=== PATIENT | male | born 1945 | race Caucasian/White ===

== ENCOUNTER 2018-05-19 17:02 | Emergency (ER) | payer MEDICARE ==
[2018-05-19 17:38] VITALS: O2SAT 97
[2018-05-19] MEDS ORDERED: SODIUM CHLORIDE 0.9% 500ML 500 ML IVS ONE ×2 (18:01→20:17)
[2018-05-19] MEDS ORDERED: ONDANSETRON INJ 4 MG/2 ML VIAL IV ONE (18:01)
--- NOTE | 2018-05-19 19:05 | ED.PDOC ---
History of Present Illness - General Chief Complaint: Abdominal Pain Stated Complaint: Abdominal discomfort, L upper Time Seen by Provider: 05/19/18 18:00 Information Source: patient, RN notes reviewed, Vital Signs reviewed, family Exam Limitations: no limitations - History of Present Illness Abdominal Pain Onset Location: epigastric Pain Radiation: no radiation Quality: cramping, sharpness Timing/Duration: 1 week Improving Factors: nothing Worsening Factors: eating Associated Symptoms: fatigue, nausea/vomiting, weakness Review of Systems - Review of Systems Constitutional: States: see HPI EENTM: States: no symptoms reported Respiratory: States: no symptoms reported Cardiology: States: no symptoms reported. Denies: chest pain, edema, palpitations, syncope Gastrointestinal/Abdominal: States: abdominal pain, nausea, vomiting Genitourinary: States: no symptoms reported Musculoskeletal: States: no symptoms reported Skin: States: no symptoms reported Neurological: States: no symptoms reported Endocrine: States: no symptoms reported Hematologic/Lymphatic: States: no symptoms reported Family Medical History - Family History Father Living Status: Hx Cardiac Disease: Yes Hx Family Cancer: Yes Physical Exam - Physical Exam General Appearance: Alert, Anxious Eyes, Ears, Nose, Throat Exam: PERRL/EOMI, normal ENT inspection, TMs normal Neck: non-tender, full range of motion, supple, normal inspection Respiratory: chest non-tender, lungs clear, normal breath sounds, no respiratory distress, no accessory muscle use Cardiovascular/Chest: normal peripheral pulses, regular rate, rhythm, no edema, no gallop, no JVD Peripheral Pulses: 2+ Gastrointestinal/Abdominal: non tender, tenderness - epigastric pain Back Exam: normal inspection, no CVA tenderness, no vertebral tenderness Extremity: normal range of motion, non-tender, normal inspection, no pedal edema , no calf tenderness 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 Copy, Patient Portal Self Enrollment Instructions: DI for Abdominal Pain-Adult, Peptic Ulcers, Urinary Tract Infections in Adults Diet: other - clear liquid for 2 days then advance as tolerated to soft/bland diet for 2 days then advance as tolerated to regular diet Activity: increase activity as tolerated Prescriptions: Amoxicillin [Amoxil] 1,000 mg PO BID 10 Days #40 cap Clarithromycin 500 mg PO BID #20 tab Hyoscyamine Sulfate [Levsin/Sl] 0.125 mg SL Q6H PRN #20 sub PRN Reason: Pain Pantoprazole Tablet [Protonix] 40 mg PO DAILY #10 tab Sucralfate Tab [Carafate Tab] 1 gm PO Q8H 10 Days #30 tablet Home Medications: Ambulatory Orders Amoxicillin [Amoxil] 1,000 mg PO BID 10 Days #40 cap 05/19/18 Clarithromycin 500 mg PO BID #20 tab 05/19/18 Hyoscyamine Sulfate [Levsin/Sl] 0.125 mg SL Q6H PRN #20 sub 05/19/18 Pantoprazole Tablet [Protonix] 40 mg PO DAILY #10 tab 05/19/18 Sucralfate Tab [Carafate Tab] 1 gm PO Q8H 10 Days #30 tablet 05/19/18 Additional Instructions: [facility] as soon as [facility]; return if signs of bleeding
--- NOTE | 2018-05-19 20:06 | CT ---
EXAM DESCRIPTION: Abdomen/Pelvis w/Contrast CLINICAL HISTORY: 73 years Male upper abd pain, weight loss COMPARISON: 04/07/2013. TECHNIQUE: Contiguous axial images obtained through the abdomen and pelvis following IV contrast. Reformatted images obtained. This exam was performed according to our department optimization program which includes automated exposure control, adjustment of the mA and/or kv according to patient size and/or use of iterative reconstruction technique. FINDINGS: The liver appears unremarkable. Spleen appears within normal limits. There is some heterogeneous tissue along the pancreatic head and second portion of the duodenum which appears similar to the previous study and appears to represent normal pancreatic glandular tissue. However, there appears to be a small amount of wall thickening and adjacent edema involving the second and third portions of the duodenum. Question ulcer disease or duodenitis. No adrenal masses. Numerous renal cysts. No hydronephrosis or obstructive uropathy. The gallbladder is visualized. No aneurysmal dilatation of the aorta. No bowel obstruction. The appendix is unremarkable. No significant free fluid noted. Mildly prominent heterogeneous prostate. IMPRESSION: Small amount of wall thickening and inflammation involving the second and third portions of the duodenum. Question ulcer disease or duodenitis Mildly prominent peripancreatic lymph nodes which appear similar to previous exams Renal cysts Diverticulosis Prominent prostate Electronically signed by: Danielle Peter MD 05/19/2018 8:04 PM CDT
[2018-05-19] MEDS ORDERED: SUCRALFATE 1 GM/10 ML 1 GM UD PO ONE (20:15)
[2018-05-19] MEDS ORDERED: PANTOPRAZOLE INJECTION 80 MG in SODIUM CHLORIDE 0.9% 100ML 80 ML IVPB ONE (20:15)
[2018-05-19] MEDS ORDERED: cefTRIAXone SODIUM 1 GM in SODIUM CHL 0.9% 50ML MIN-BAG+ 50 ML IVPB ONE (20:16)
[2018-05-19] MEDS ORDERED: PANTOPRAZOLE SODIUM IV 40 MG VIAL ONE (20:18)
[2018-05-19] MEDS ORDERED: cefTRIAXone SODIUM 1 GM VIAL ONE (20:18)
[2018-05-19] MEDS ORDERED: SODIUM CHLORIDE 0.9% 100ML 100 ML IVPB ONE ×2 (20:19→20:21)
[2018-05-19 21:17] VITALS: BP 122/76
[2018-05-19 21:39] VITALS: TEMP 98.1
== END 2018-05-19 21:39 | disposition home or self-care (01) ==
LOC: ER 17:02 → EDBD 17:02 → ER 21:39
DX: K29.80 Duodenitis without bleeding (principal); E86.0 Dehydration; N30.00 Acute cystitis without hematuria
CPT/HCPCS: 36415; 74177; 80053; 81001; 82550; 82553; 83690; 84484; 85025; J0696; J2405; J7040; J7050

== ENCOUNTER → 2020-08-24 | Outpatient (CLI) | payer MEDICARE, OTHER ==
--- NOTE | 2020-08-24 12:12 | RAD ---
EXAM DESCRIPTION: Pelvis x-ray 1 view CLINICAL HISTORY: 75 years Male, HIP PAIN COMPARISON: CT abdomen and pelvis May 19, 2018 FINDINGS: Degenerative spurring in the lower lumbar spine. Sacrum appears intact with normal SI joints. Mild degenerative narrowing of the pubis symphysis and at the medial hip joints. Mild acetabular spurring. Phlebolith left pelvis. No bony destructive lesion, fracture or dislocation. No worrisome change compared to previous CT images May 19, 2018. IMPRESSION: Degenerative changes as described. Electronically signed by: Foreign Serrato MD 08/24/2020 12:10 PM CDT
--- NOTE | 2020-08-24 12:15 | RAD ---
EXAM DESCRIPTION: Knee, x-ray right Complete 4 views CLINICAL HISTORY: 75 years, Male, KNEE PAIN COMPARISON: None TECHNIQUE: 4 x-ray views of the right knee standing FINDINGS: No fracture or dislocation. Bones appear osteopenic with prominent trabecular pattern. Narrowed appearance of medial compartment on frontal view with prominent medial joint line spurring. Lateral view shows normal position of the patella. Prominent posterior patellar spurring with prominent spurring of the anterior femoral trochlea. Mild anterosuperior enthesopathy. Prominent spurring of the posterior femoral condyles and posterior tibial surface. Positive small suprapatellar knee joint effusion. Normal contour of quadriceps and patellar tendons. No abnormal patellar tilt or subluxation on patellar sunrise view. Oblique view shows Hoda varus secondary to degenerative changes in the medial compartment. IMPRESSION: Advanced osteoarthrosis of the right knee. Electronically signed by: Foreign Serrato MD 08/24/2020 12:14 PM CDT
--- NOTE | 2020-08-24 12:18 | RAD ---
EXAM DESCRIPTION: Knee, x-ray left Complete CLINICAL HISTORY: 75 years, Male, KNEE PAIN COMPARISON: None TECHNIQUE: 4 x-ray views of the left knee FINDINGS: No fracture or dislocation. Bones appear mildly osteopenic Narrowed appearance of medial compartment on frontal view with prominent medial joint line spurring and spurring at the tibial spine. Subchondral cystic change in the proximal tibia near the tibial spines. Lateral view shows normal position of the patella. Marked narrowing of the patellofemoral joint with prominent spurring in the posterior patella and anterior femoral trochlea. Small suprapatellar knee joint effusion. Normal contour of quadriceps and patellar tendons. Prominent spurring of posterior tibial surface and posterior femoral condyles. No abnormal patellar tilt or subluxation on patellar sunrise view. Prominent posterior patellar spurring and spurring in the anterior femoral trochlear margins. Oblique view shows Hoda varus from degenerative medial compartment disease IMPRESSION: Advanced degenerative osteoarthrosis of the left knee. Electronically signed by: Foreign Serrato MD 08/24/2020 12:16 PM CDT
== END ==
LOC: RAD 07:55
PROVIDERS: ATTEND Orthopaedic Surgery
DX: M17.0 Bilateral primary osteoarthritis of knee (principal); M51.36 Other intervertebral disc degeneration, lumbar region; M25.851 Other specified joint disorders, right hip; M25.852 Other specified joint disorders, left hip; I86.2 Pelvic varices; M25.761 Osteophyte, right knee; M25.70 Osteophyte, unspecified joint

== ENCOUNTER → 2020-10-22 | Outpatient (CLI) | payer OTHER | LOC: LAB.O 08:16 | PROVIDERS: ATTEND Orthopaedic Surgery | DX: Z01.818 Encounter for other preprocedural examination (principal) ==

== ENCOUNTER 2020-11-20 05:59 | Inpatient (IN) | payer OTHER ==
[~2020-11-20 05:59] MED LIST: LACTATED RINGERS 1,000 ML ONE; SODIUM CHL 0.9% 100ML MINI-BAG 100 ML IVPB ONE; SODIUM CHLORIDE 0.9% (FLUSH) 10 ML SYG ONE; SODIUM CHLORIDE 0.9% 100ML 100 ML IVPB ONE; SODIUM CHLORIDE 0.9% 250ML 0 ML ONE; TRANEXAMIC ACID 1,000 MG/10 ML VIAL ONE; VANCOMYCIN HCL INJ 1,000 MG VIAL IVPB ONE; ceFAZolin SODIUM 1 GM VIAL ONE
[2020-11-20] MEDS ORDERED: LACTATED RINGERS 1,000 ML IVS ONE (06:22)
[2020-11-20] MEDS ORDERED: TRANEXAMIC ACID 1,000 MG/10 ML VIAL IV ONE (06:26)
[2020-11-20] MEDS ORDERED: MIDAZOLAM INJ 5 MG/5 ML VIAL ONE (06:27)
[2020-11-20] MEDS ORDERED: FAMOTIDINE INJ 10 MG/ML VIAL IV ONE (06:27)
[2020-11-20] MEDS ORDERED: HYDROmorphone HCL INJ 2 MG/ML VIAL ONE (06:27)
[2020-11-20] MEDS ORDERED: VANCOMYCIN HCL INJ 1,000 MG VIAL IVPB ONE ×2 (06:38→08:46)
[2020-11-20] MEDS: BUPIVACAINE LIPOSOME 13.3 MG/ML VIAL INJ ONE ×2 (07:43→08:23)
[2020-11-20] MEDS: VANCOMYCIN HCL INJ 1,000 MG VIAL IVPB ONE ×3 (07:43→08:51)
[2020-11-20] MEDS: ceFAZolin SODIUM 1 GM VIAL ONE ×3 (07:43→08:51)
[2020-11-20] MEDS: BUPIVACAINE 0.5% 30 ML VIAL INJ ONE ×2 (07:43→08:23)
[2020-11-20] MEDS ORDERED: ELECTROLYTE-A 1,000 ML IVS ONE (08:00)
[2020-11-20] MEDS ORDERED: SODIUM CHLORIDE 0.9% 1000ML 1,000 ML ONE (08:46)
[2020-11-20] MEDS ORDERED: ONDANSETRON INJ 4 MG/2 ML VIAL IV PRN (09:16)
[2020-11-20] MEDS ORDERED: CYCLOBENZAPRINE HCL 10 MG TAB PO PRN (09:16)
[2020-11-20] MEDS ORDERED: ZOLPIDEM TARTRATE 5 MG TAB PO PRN (09:16)
[2020-11-20] MEDS ORDERED: BISACODYL SUPPOSITORY 10 MG PR PRN (09:16)
[2020-11-20] MEDS ORDERED: ACETAMINOPHEN 500 MG TAB PO PRN (09:16)
[2020-11-20] MEDS ORDERED: MAGNESIUM HYDROXIDE 30 ML UD PO PRN (09:16)
[2020-11-20] MEDS ORDERED: TEMAZEPAM 15 MG CAP PO PRN (09:16)
[2020-11-20] MEDS ORDERED: ACETAMINOPHEN 325 MG TAB PO PRN (09:16)
[2020-11-20] MEDS ORDERED: MORPHINE SULFATE INJ 10 MG/ML VIAL IM PRN (09:16)
[2020-11-20] MEDS ORDERED: PROMETHAZINE HCL INJ 25 MG in SODIUM CHLORIDE 0.9% 50ML 50 ML IVPB PRN (09:16)
[2020-11-20] MEDS ORDERED: SODIUM CHLORIDE 0.9% (FLUSH) 10 ML SYG IV PRN (09:16)
[2020-11-20] MEDS ORDERED: MORPHINE SULFATE INJ 10 MG/ML VIAL IV PRN (09:16)
[2020-11-20] MEDS ORDERED: TRANEXAMIC ACID INJ 1,000 MG in SODIUM CHLORIDE 0.9% 100ML 100 ML IVPB ONE (09:16)
[2020-11-20] MEDS ORDERED: ALUMINUM & MAGNESIUM HYDROXIDE 30 ML UD PO PRN (09:16)
[2020-11-20] MEDS ORDERED: BENZOCAINE-MENTH LOZ (CEPACOL) 1 EA LOZ MT PRN (09:16)
[2020-11-20] MEDS ORDERED: traMADol HCL 50 MG TAB PO PRN (09:16)
[2020-11-20] MEDS ORDERED: PROMETHAZINE HCL INJ 12.5 MG in SODIUM CHLORIDE 0.9% 50ML 50 ML IVPB PRN (09:16)
[2020-11-20] MEDS ORDERED: HYDROcodone 5MG/APAP 325MG 1 EA TAB PO PRN (09:16)
[2020-11-20] MEDS ORDERED: NALOXONE HCL INJ 0.4 MG/ML VIAL IV PRN (09:16)
[2020-11-20] MEDS ORDERED: DEX 5% W/NACL 0.45% 1000ML 1,000 ML IVS PRN (09:16)
[2020-11-20] MEDS ORDERED: hydrOXYzine HCl 25 MG TAB PO PRN (09:16)
[2020-11-20] MEDS ORDERED: IV SET AND CAP CHANGE INJ INJ SCH (09:30)
[2020-11-20] MEDS ORDERED: MORPHINE PCA 1 MG/ML 100 ML BAG IVPB SCH (09:30)
[2020-11-20] MEDS ORDERED: CADD ADMIN SET 1 EA PKG INJ ONE (09:55)
[2020-11-20] MEDS ORDERED: MORPHINE PCA 1 MG/ML 100 ML BAG IVPB ONE (10:00)
[2020-11-20] MEDS ORDERED: hydrOXYzine HCl 25 MG TAB PO ONE (10:22)
[2020-11-20] MEDS ORDERED: DEX 5% W/NACL 0.45% 1000ML 1,000 ML IVS ONE (11:28)
[2020-11-20] MEDS: ceFAZolin SODIUM 2 GM in SODIUM CHL 0.9% 50ML MIN-BAG+ 50 ML IVPB SCH ×2 (15:22→21:51)
[2020-11-20] MEDS ORDERED: GLUCAGON INJ 1 MG VIAL SUBCU PRN (15:37)
[2020-11-20] MEDS ORDERED: DEXTROSE 50% 25 GM/50 ML SYG IV PRN (15:37)
[2020-11-20] MEDS ORDERED: EPINEPHrine HCL AMP 1 MG/ML AMP IVPB ONE (16:15)
[2020-11-20] MEDS ORDERED: ePHEDrine SULF 50 MG/ML IV ONE (16:15)
[2020-11-20] MEDS ORDERED: LIDOCAINE 1% 10 ML VIAL INJ ONE (16:15)
[2020-11-20] MEDS ORDERED: DEXAMETHASONE INJ 10 MG/ML VIAL IV ONE (16:15)
[2020-11-20] MEDS ORDERED: PROPOFOL 200 MG/20 ML VIAL IV ONE (16:15)
[2020-11-20] MEDS ORDERED: MAGNESIUM SULFATE INJ 1 GM/2 ML VIAL IVPB ONE (16:15)
--- NOTE | 2020-11-20 16:21 | CONS ---
SUPERVISING PHYSICIAN: Marino Yo MD REASON FOR CONSULTATION: 1. Status post left total knee replacement. 2. Medical Management. HISTORY OF PRESENT ILLNESS: Mr. Palacio is a 75 year-old male patient who has a longstanding history of bilateral osteoarthritis of the knees affecting the left more than the right. He has tried multiple efforts of outpatient including physical therapy and further management in orthopedics to get relief and treatment of the pain. He has not received any significant relief of the pain and it is affecting his activities of daily living. Therefore, he requested surgical intervention in the form of a left total knee arthroplasty by Dr. Morillo. The patient as admitted on 11/20/20 for elective total knee arthroplasty. Surgeon being performed by Dr. Calvin Morillo. The patient had no intraoperative complications and was seen immediately postoperatively and seen in stable condition. PAST MEDICAL HISTORY: 1. Previous myocardial infarctions at age 39 with stent placement. 2. Type 2 diabetes mellitus on oral therapy. 3. Previous CVA with no mention of any deficits. 4. Skin cancer, cured surgically. PAST SURGICAL HISTORY: 1. Left knee arthroscopy. 2. Coronary artery stent placement. CURRENT MEDICATIONS: 1. Protonix 40 mg daily. 2. Aspirin 81 mg daily. 3. Tylenol 500 mg b.i.d. 4. Simvastatin 800 mg daily. 5. Pantoprazole 40 mg daily in the morning. 7. Metformin 1000 mg b.i.d. 8. Lisinopril 40 mg daily. 9. Cetirizine 10 mg daily. 10. Flomax. ALLERGIES: No known drug allergies. FAMILY HISTORY: Mother and father history is unknown. He has one brother who has hypertension and had a myocardial infection and is type 2 diabetic. He has one son who has type 2 diabetes. He has 2 daughters who are type 2 diabetic. SOCIAL HISTORY: The patient is a retired telephone maintenance mechanic. He is , has 3 children. 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 He does have a remote history of smoking but quit multiple years previously. He drinks alcohol on very rare occasions. He does not use illicit drugs. REVIEW OF SYSTEMS: CONSTITUTIONAL: Denies fever and chills general malaise, unintentional weight loss. HEENT: Negative for headache, vision changes, sore throat, nasal congestion, earache. RESPIRATORY: Denies coughing, wheezing, shortness of breath. CARDIOVASCULAR: No chest pain, palpitations or syncopal episodes. GASTROINTESTINAL: No nausea, vomiting, diarrhea, constipation or abdominal pain. GENITOURINARY: No dysuria, hematuria, polyuria. MUSCULOSKELETAL: As noted in history of present illness. SKIN: Denies unexplained lesions, changes or moles. NEUROLOGIC: Denies ataxia, seizures, paresthesias or other motor or focal deficits. HEMATOLOGIC: Denies unexplained bleeding,g, bruising or transfusion reactions. PHYSICAL EXAMINATION: VITAL SIGNS: Temperature 97.5, pulse 55, blood pressure 114/65, respirations 16, oxygen saturation 96% on 2 liter nasal cannula. GENERAL: The patient looks to be resting comfortably. Reports his pain is controlled and is no acute distress. HEENT: Tympanic membranes are clear bilaterally. Oropharynx pink and moist without lesions. NECK: Supple, non-tender, full range of motion. No jugular venous distention. CHEST: Lung sounds clear to auscultation bilaterally without rhonchi, rales, or wheezes. HEART: Regular rate and rhythm without appreciable murmurs, rubs, or gallops. ABDOMEN: Soft, non-tender, positive bowel sounds. EXTREMITIES: No cyanosis, clubbing, or edema. Left leg has surgical dressing in place with ice band. Distal pulses are strong, capillary refill brisk. NEUROLOGIC: He is alert and oriented x 3. Cranial nerves II through XII are grossly intact. SKIN: Warm, pink and dry. LABORATORY: Postoperative H&H pending. Postoperative glucose 142. Urinalysis on 11/12 showed 3 to 5 RBCs, otherwise within normal limits. Preoperative toxicology screen was negative. RADIOLOGY: No additional radiographic studies for review. ADMITTING DIAGNOSIS: 1. Severe osteoarthritis of left knee requiring surgical intervention in the form of a left total knee arthroplasty performed by Dr. Calvin Morillo, postoperative #0. 2. Type 2 diabetes mellitus on oral therapy. 3. History of previous cerebrovascular accidents without reported residual effects. PLAN: Will follow the patient medically as he continues through his postoperative recovery phase and begins rehabilitation. Will defer orthopedic management to Dr. Morillo and physical therapy. Will resume his home medications as appropriate to his hospitalization and care. Will have him on sliding scale per insulin protocol. He will be on ADA diet per protocol. I ancipitate his length of stay to be at least 2 to 3 days. Until we can transition patient to outpatient management, we will continue to monitor and treat as needed. #[id number] [facility]
[2020-11-20] MEDS: INSULIN LISPRO 100 UNITS/ML PEN SUBCU SCH ×2 (17:09→21:09)
[2020-11-20] MEDS: CELECOXIB 100 MG CAP PO SCH (17:34)
[2020-11-20] MEDS: VANCOMYCIN HCL INJ 1,000 MG in SODIUM CHLORIDE 0.9% 250ML 250 ML IVPB SCH (17:34)
[2020-11-20] MEDS: metFORMIN HCL 500 MG TAB PO SCH (17:34)
[2020-11-20] MEDS ORDERED: ASPIRIN (ENTERIC COATED) 81 MG TAB PO ONE (19:53)
[2020-11-20] MEDS ORDERED: DOCUSATE CALCIUM 240 MG CAP ONE (19:53)
[2020-11-20] MEDS ORDERED: SIMVASTATIN 20 MG TAB ONE (19:53)
[2020-11-20] MEDS ORDERED: ENOXAPARIN SODIUM 30 MG/0.3 ML SYG SUBCU ONE (19:53)
[2020-11-20] MEDS: SIMVASTATIN 20 MG TAB PO SCH (19:56)
[2020-11-20] MEDS: ASPIRIN (ENTERIC COATED) 81 MG TAB PO SCH (19:57)
[2020-11-20] MEDS: ACETAMINOPHEN 500 MG TAB PO SCH (19:57)
[2020-11-20] MEDS: DOCUSATE CALCIUM 240 MG CAP PO SCH (19:57)
[2020-11-20] MEDS: ENOXAPARIN SODIUM 30 MG/0.3 ML SYG SUBCU SCH (21:57)
[2020-11-21] MEDS ORDERED: SODIUM CHLORIDE 0.9% 250ML 250 ML ONE (05:19)
[2020-11-21] MEDS: ceFAZolin SODIUM 2 GM in SODIUM CHL 0.9% 50ML MIN-BAG+ 50 ML IVPB SCH (05:31)
[2020-11-21] MEDS: VANCOMYCIN HCL INJ 1,000 MG in SODIUM CHLORIDE 0.9% 250ML 250 ML IVPB SCH (05:41)
[2020-11-21] MEDS: PANTOPRAZOLE SODIUM TAB 40 MG PO SCH (05:46)
--- NOTE | 2020-11-21 06:38 | RAD ---
Frontal and lateral views of the left knee. Indication: TKA Impression: Postsurgical changes of left total knee arthroplasty and patellar resurfacing noted with associated postsurgical changes of the soft tissues. No complicating features identified. Electronically signed by: German Salamanca MD 11/21/2020 6:37 AM [employer]
[2020-11-21] MEDS: INSULIN LISPRO 100 UNITS/ML PEN SUBCU SCH ×4 (07:34→21:03)
[2020-11-21] MEDS ORDERED: TAMSULOSIN 0.4 MG CAP ONE (07:41)
[2020-11-21] MEDS ORDERED: CETIRIZINE HCL 10 MG TAB PO ONE (07:41)
[2020-11-21] MEDS ORDERED: MAGNESIUM OXIDE 400 MG TAB ONE (07:41)
[2020-11-21] MEDS ORDERED: LISINOPRIL 10 MG TAB ONE (07:42)
[2020-11-21] MEDS: CELECOXIB 100 MG CAP PO SCH ×2 (08:07→16:11)
[2020-11-21] MEDS: LISINOPRIL 10 MG TAB PO SCH ×2 (08:07→08:13)
[2020-11-21] MEDS: MAGNESIUM OXIDE 400 MG TAB PO SCH (08:07)
[2020-11-21] MEDS: ACETAMINOPHEN 500 MG TAB PO SCH ×2 (08:07→21:03)
[2020-11-21] MEDS: TAMSULOSIN 0.4 MG CAP PO SCH (08:07)
[2020-11-21] MEDS: CETIRIZINE HCL 10 MG TAB PO SCH (08:07)
[2020-11-21] MEDS: metFORMIN HCL 500 MG TAB PO SCH ×2 (08:08→16:11)
[2020-11-21] MEDS ORDERED: PANTOPRAZOLE SODIUM TAB 40 MG PO SCH (09:00)
[2020-11-21] MEDS: ENOXAPARIN SODIUM 30 MG/0.3 ML SYG SUBCU SCH ×2 (11:08→23:57)
--- NOTE | 2020-11-21 11:19 | PN ---
DATE: 11/21/20 SUBJECTIVE: Mr. Palacio is doing well. He is up to a chair and has minimal pain. OBJECTIVE: Afebrile. Vital signs stable. Dressing is clean, dry and intact. ASSESSMENT: Status post total knee arthroplasty. PLAN: The plan at this point is to continue with weightbearing as tolerated today. #[id number] [facility]
--- NOTE | 2020-11-21 11:25 | PN ---
SUPERVISING PHYSICIAN: Jose Yo MD DATE: 11/21/20 SUBJECTIVE: The patient is sitting up in his chair. He denies any shortness of breath, chest pain, nausea or vomiting. We discussed his discharge plan and plan for Thursday if he continues to improve clinically. OBJECTIVE: VITAL SIGNS: Temperature 98.1, heart rate 77, blood pressure 100/60, respiratory rate 20, O2 96% on 2 liters nasal cannula. RESPIRATORY: Essentially clear to auscultation bilaterally. CARDIAC: Regular rate and rhythm. EXTREMITIES: He has a dressing to his left knee that is dry and intact. Bilateral pedal pulses are palpable at +2. NEUROLOGIC: Awake, alert and oriented times three. LABORATORY: Hemoglobin 12.8, hematocrit 38.7. All other labs and films have been reviewed via the EMR. ASSESSMENT: 1. Severe osteoarthritis of the left knee requiring surgical intervention in the form of left total knee arthroplasty performed by Dr. Calvin Morillo, postoperative #1. 2. Type 2 diabetes mellitus on oral therapy. 3. History of previous cerebrovascular accident with no reported residual effects. PLAN: We will continue present supportive care. He will continue physical therapy for strengthening and conditioning. He will also have orthopedic issues per Dr. Morillo. Plan for discharge on Thursday and [facility]. We will continue to monitor the patient closely and follow as needed. [facility][id number]
--- NOTE | 2020-11-21 11:47 | OP ---
DATE OF PROCEDURE: 11/20/20 PREOPERATIVE DIAGNOSIS: 1. Osteoarthritis of the left knee. POSTOPERATIVE DIAGNOSIS: 1. Osteoarthritis of the left knee. PROCEDURE: 1. Left total knee arthroplasty. SURGEON: Calvin Morillo MD. PSYCHOLOGICAL ANTHROPOLOGIST: Ozzie Smith CST, SA-C. ANESTHESIA: General anesthesia. COMPLICATIONS: None. FINDINGS: 1. Severe osteoarthritis. 2. Varus deformity. INDICATION: Mr. Palacio has a history of severe knee pain that has been refractory to conservative measures. Because of the ongoing pain and refractory nature, he has requested operative intervention. After discussing the risks, benefits and alternatives to operative intervention, informed consent was obtained. PROCEDURE: The patient was brought to the Operating Room and placed in supine position. General anesthesia was induced and the patient's leg was sterilely prepped and draped. Following prepping and draping, the distal femur was exposed and using an intramedullary guide, the distal femoral cut was made. The appropriate sized cutting block was measured, pinned into place, and the anterior, posterior, and chamfer cuts were made. The ACL was transected and the tibia was subluxed. Both the medial and lateral menisci were removed. An intramedullary guide was used to make the proximal tibial cut. The appropriate sized base plate was placed and a trial polyethylene was placed. The trial femur was placed, the knee was reduced, and the knee was taken through a range of motion. The knee was stable in anterior, posterior, varus and valgus stress. The patella tracked anatomically without evidence of subluxation or dislocation. After trialing, the trial components were removed and the bony surfaces were thoroughly irrigated with saline. Following irrigation, the surfaces were dried and the final components were cemented into place. The excess cement was removed and the remaining cement was allowed to cure. The knee was again taken through a range of motion to confirm stability. The wound was then irrigated with saline and closure was performed using PDS to approximate the arthrotomy followed by closure of the subcutaneous tissues with a combination of running and interrupted Monocryl sutures. Sterile dressing was placed. The patient was awoken from anesthesia and taken to Recovery. COMPONENTS: Adilson Triathlon knee, size 7 femur, size 6 tibia, 9 mm insert. POSTOPERATIVE PLAN: The patient will be weight-bearing as tolerated on postoperative day 1. #[id number] [facility]
[2020-11-21] MEDS: ASPIRIN (ENTERIC COATED) 81 MG TAB PO SCH (21:02)
[2020-11-21] MEDS: DOCUSATE CALCIUM 240 MG CAP PO SCH (21:03)
[2020-11-21] MEDS: SIMVASTATIN 20 MG TAB PO SCH (21:05)
[2020-11-22] MEDS: PANTOPRAZOLE SODIUM TAB 40 MG PO SCH (06:03)
[2020-11-22] MEDS: INSULIN LISPRO 100 UNITS/ML PEN SUBCU SCH ×2 (07:48→12:16)
[2020-11-22] MEDS: CELECOXIB 100 MG CAP PO SCH (07:57)
[2020-11-22] MEDS: metFORMIN HCL 500 MG TAB PO SCH (07:58)
[2020-11-22] MEDS: MAGNESIUM OXIDE 400 MG TAB PO SCH (08:00)
[2020-11-22] MEDS: CETIRIZINE HCL 10 MG TAB PO SCH (08:00)
[2020-11-22] MEDS: ACETAMINOPHEN 500 MG TAB PO SCH (08:00)
[2020-11-22] MEDS: TAMSULOSIN 0.4 MG CAP PO SCH (08:00)
[2020-11-22] MEDS: LISINOPRIL 10 MG TAB PO SCH (08:02)
[2020-11-22] MEDS ORDERED: SODIUM CHLORIDE 0.9% (FLUSH) 10 ML SYG IV SCH (09:00)
[2020-11-22 09:42] VITALS: TEMP 97.7; O2SAT 95
[2020-11-22] MEDS: ENOXAPARIN SODIUM 30 MG/0.3 ML SYG SUBCU SCH (10:57)
--- NOTE | 2020-11-22 12:39 | PN ---
DATE: 11/22/20 SUBJECTIVE: Mr. Palacio is doing well. He is up to a chair and has been walking today. OBJECTIVE: Afebrile. Vital signs stable. Wound is clean. there are no signs or symptoms of infection. ASSESSMENT: Status post total knee arthroplasty. PLAN: The plan at this point is for him to be discharged. He will followup with us in 2 weeks. He has been given appropriate instructions on wound care. [facility][id number] [facility]
[2020-11-22 14:31] VITALS: BP 140/79
[2020-11-23] MEDS ORDERED: MAGNESIUM HYDROXIDE 30 ML UD PO ONE (21:00)
[2020-11-23] MEDS ORDERED: BISACODYL SUPPOSITORY 10 MG PR ONE (21:00)
--- NOTE | 2020-11-26 11:18 | RAD ---
EXAM DESCRIPTION: Fluoroscopy Up to 1Hr CLINICAL HISTORY: LEFT TKA COMPARISON: None. IMPRESSION: Spot fluoroscopic intraoperative views of the left knee are obtained during total knee arthroplasty. Fluoroscopy time is 4.3 seconds. No extra exposure images are obtained. Electronically signed by: Marcus Calzada MD 11/26/2020 11:16 AM [facility]
--- NOTE | 2020-11-28 15:38 | DS ---
SUPERVISING PHYSICIAN: Jose Yo MD DISCHARGE DIAGNOSIS: 1. Severe osteoarthritis of the left knee requiring surgical intervention in the form of left total knee arthroplasty performed by Dr. Calvin Morillo, orthopedic surgeon, postoperative #2. 2. Type 2 diabetes mellitus. 3. History of previous cerebrovascular accident with no reported residual effects. HISTORY OF PRESENT ILLNESS: This is a 75 year-old male patient who has a significant history of bilateral osteoarthritis of the knees affecting the left more than the right. He has tried multiple efforts of outpatient treatment including physical therapy and failed to gain any relief. He requested Dr. Calvin Morillo, orthopedic surgeon, for operative intervention. The patient as admitted on the day of surgery. There were no intraoperative complications and the patient was admitted to the Medical/Surgical Floor postoperatively. Dr. Morillo's routine postoperative orders were initiated. HOSPITAL COURSE: The patient had no problems postoperatively. He started with his physical therapy and progressed through that without any problems. His pain issues were well controlled. He met all of his physical therapy requirements and today he will be discharged home to have followup physical [facility]. LABORATORY: Fibrolipoma H&H was 12.8 and 38.7. Blood sugars ran between 92 and 125. Toxicology was negative on his UDS. RADIOLOGY: His films are per the EMR. DISCHARGE PLAN: The patient will be discharged home in stable condition. He is to have physical therapy at the [facility] as per instructions. Dr. Morillo should be contacted for any operative issues. He is to resume his previous diet and increase his activity as tolerated. In addition to his routine medications, he is to continue with 7 days of doxycycline. He also will have cyclobenzaprine, hydrocodone and 9 additional days of Xarelto. He is to have a followup appointment with Dr. Morillo as previously scheduled. He is to return to the hospital or followup with Dr. Morillo for any problems or complications. DISCHARGE MEDICATIONS: 1. Pantoprazole. 2. Tamsulosin. 3. Simvastatin. 4. Metformin. 5. Lisinopril. 6. Cetirizine. 7. Aspirin. 8. Acetaminophen. 9. Doxycycline. 10. Cyclobenzaprine. 11. Hydrocodone. 12. Xarelto. #[id number] [facility]TDD
== END 2020-11-22 15:31 | disposition home or self-care (01) | DRG 470 ==
LOC: AMB 05:59 → MS 10:50
PROVIDERS: ADMIT Orthopaedic Surgery; ATTEND Nurse Practitioner Acute Care
PROC: 0SRD0J9 Replacement of Left Knee Joint with Synthetic Substitute, Cemented, Open Approach (ICD-10-PCS; principal; 2020-11-20 06:48)
DX: M17.12 Unilateral primary osteoarthritis, left knee (principal); M21.162 Varus deformity, not elsewhere classified, left knee; E11.9 Type 2 diabetes mellitus without complications; Z86.73 Personal history of transient ischemic attack (TIA), and cerebral infarction without residual deficits; I25.2 Old myocardial infarction; Z95.5 Presence of coronary angioplasty implant and graft; Z85.828 Personal history of other malignant neoplasm of skin; Z79.82 Long term (current) use of aspirin; Z79.84 Long term (current) use of oral hypoglycemic drugs; Z87.891 Personal history of nicotine dependence; Z83.3 Family history of diabetes mellitus; Z82.49 Family history of ischemic heart disease and other diseases of the circulatory system

== ENCOUNTER 2020-12-26 11:41 | Observation (INO) | payer OTHER ==
--- NOTE | 2020-12-26 12:56 | RAD ---
EXAM DESCRIPTION: Chest,1 View CLINICAL HISTORY: 75 years Male, sob, low bp COMPARISON: None. TECHNIQUE: Single view radiograph of the chest. IMPRESSION: Normal size cardiac silhouette. No lobar or masslike consolidation. No pleural effusion or pneumothorax. Thoracic spondylosis. Electronically signed by: Galen Valdez MD 12/26/2020 12:54 PM [employer]
[2020-12-26] MEDS ORDERED: SODIUM CHLORIDE 0.9% 1000ML 1,000 ML IVS ONE (13:09)
[2020-12-26] MEDS ORDERED: SOD POLYSTYRENE SULFONATE 15 GM/60 ML BTTL PO ONE (13:09)
--- NOTE | 2020-12-26 14:41 | ED.PDOC ---
History of Present Illness - General Chief Complaint: Syncope/Near Syncope Stated Complaint: syncopal episode at PT Time Seen by Provider: 12/26/20 11:53 Source: patient Exam Limitations: no limitations - History of Present Illness Initial Comments: The patient is a 75-year-old male presenting to the emergency room secondary to feeling short of breath and mildly dizzy at physical therapy this morning. The patient had a knee replacement done about a month ago and was at physical therapy for that. He has been having some mild increased shortness of breath recently. The patient has had about a 30 pound weight loss over the last 2 months, intentionally done. He does take blood pressure medications. His blood pressure was found to be fairly low. Blood pressures here are in the 90s over 60s. Timing/Duration: momentarily Severity: mild Improving Factors: nothing Worsening Factors: nothing Associated Symptoms: loss of appetite, malaise, shortness of breath Allergies/Adverse Reactions: Allergies NO KNOWN ALLERGY Allergy (Verified 11/12/20 10:40) Home Medications: Ambulatory Orders Pantoprazole Tablet [Protonix] 40 mg PO DAILY #10 tab 05/19/18 Acetaminophen [Tylenol] 500 mg PO BID 11/12/20 Aspirin [Aspirin Adult Low Strengt] 81 mg PO QPM 11/12/20 Cetirizine HCl [Cetirizine Hydrochloride] 10 mg PO QAM 11/12/20 Lisinopril 40 mg PO QAM 11/12/20 Metformin HCl [Metformin Hydrochloride] 1,000 mg PO BID 11/12/20 Simvastatin [Zocor] 80 mg PO QPM 11/12/20 Tamsulosin [Flomax] 0.4 mg PO QAM 11/12/20 Cyclobenzaprine HCl [Flexeril] 10 mg PO Q8H PRN #30 tab 11/22/20 HYDROcodone 5MG/APAP 325MG [Brookesmith 5/325] 1 ea PO Q4H PRN tab 11/22/20 Rivaroxaban [Xarelto] 15 mg PO DAILY #9 tablet 11/22/20 Review of Systems - Review of Systems Constitutional: States: malaise EENTM: States: no symptoms reported Respiratory: States: short of breath Cardiology: States: no symptoms reported Gastrointestinal/Abdominal: States: no symptoms reported Genitourinary: States: no symptoms reported Musculoskeletal: States: see HPI Skin: States: no symptoms reported Neurological: States: see HPI Endocrine: States: no symptoms reported All other Systems: No Change from Baseline Past Medical History (General) - Patient Medical History Hx Seizures: No Hx Stroke: No Hx Asthma: No Hx of COPD: No Hx Cardiac Disorders: Yes - [place] (1995), stents Hx Congestive Heart Failure: No Hx Pacemaker: No Hx Hypertension: Yes Hx Diabetes: Yes Hx MRSA: No Surgical History: no surgical history - Vaccination History Hx Tetanus, Diphtheria Vaccination: Yes [facility] Hx Influenza Vaccination: Yes Hx Pneumococcal Vaccination: Yes - Social History Hx Tobacco Use: Yes - Quit 1967 Hx Alcohol Use: No Hx Substance Use: No Hx Physical Abuse: No Hx Emotional Abuse: No - Female History Patient is a Female of Child Bearing Age (10 -59 yrs old): No Family Medical History - Family History Father Living Status: Hx Cardiac Disease: Yes Hx Family Cancer: Yes Physical Exam - Physical Exam General Appearance: Alert, Comfortable, No apparent distress Eye Exam: bilateral normal Ears, Nose, Throat: hearing grossly normal, normal pharynx Neck: full range of motion, supple Respiratory: lungs clear, normal breath sounds, no respiratory distress, no accessory muscle use Cardiovascular/Chest: normal peripheral pulses, regular rate, rhythm, no edema Peripheral Pulses: radial,right: 2+, radial,left: 2+ Gastrointestinal/Abdominal: non tender, soft Rectal Exam: deferred Back Exam: no CVA tenderness, no vertebral tenderness Extremity: normal range of motion, non-tender, normal inspection, no pedal edema, normal capillary refill 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, alert, normal mood/affect, oriented x 3 Skin Exam: normal color Comments: Vital Signs - 24 hr 12/26/20 12/26/20 12/26/20 11:55 12:00 12:23 Temperature 98.2 F Pulse Rate [ 64 64 64 pulse ox] Respiratory 18 18 Rate Blood Pressure 99/57 99/57 [Right Arm] O2 Sat by Pulse 98 98 Oximetry 12/26/20 12/26/20 12:25 12:27 Temperature Pulse Rate [ 81 73 pulse ox] Respiratory Rate Blood Pressure 93/57 91/59 [Right Arm] O2 Sat by Pulse 100 100 Oximetry Progress - Progress Progress: 12/26/20 14:42 The patient is a 75-year-old male presented emergency room secondary to mild shortness of breath and a dizziness episode while in physical therapy. The patient has been found to have acute renal failure along with hyperkalemia and some hypotension. It is possible the hypotension may be due to supratherapeutic doses of blood pressure medications in light of his recent weight loss. The patient is receiving a liter of IV fluids which has helped his blood pressures. The patient does have an elevated D-dimer which may be due to his recent surgery but may also indicate a DVT or pulmonary embolus. The patient has apparently been on Xarelto. The plan will be to admit the patient and hydrate him overnight to improve the renal function. If renal function is significantly improved by morning, then he may be able to have a CT angiogram of the chest to help rule out a pulmonary embolus. In the meantime he obviously needs to continue blood thinners. He is not hypoxic. Blood pressures are improving with IV fluids. There is no elevation of the BNP to indicate sign ificant cardiac strain. He did receive a dose of Kayexalate for the hyperkalemia. Admit for continued care and monitoring. Obtaining a post void residual on his bladder may be warranted in this patient as well. Obviously the lisinopril needs to be stopped as it may be causing both the low blood pressure and elevated potassium issues. julian ferro [id number] 12/26/20 14:44 - Results/Orders Results/Orders: 12/26/20 12:26 Vital Signs-Tilt ONCE 12/26/20 12:33 Telemetry .CONTINUOUS UA [URINALYSIS] Stat 12/26/20 12:45 EKG STAT Laboratory Results - last 24 hr 12/26/20 12/26/20 12/26/20 12:30 12:30 12:30 WBC 7.9 RBC 5.04 Hgb 14.8 Hct 45.0 MCV 89.4 MCH 29.4 MCHC 32.9 L RDW 13.5 Plt Count 222 MPV 9.9 Absolute Neuts (auto) 5.10 Absolute Lymphs (auto) 1.80 Absolute Monos (auto) 0.60 Absolute Eos (auto) 0.30 Absolute Basos (auto) 0.10 Neutrophils % 65.0 Lymphocytes % 22.6 Monocytes % 7.7 Eosinophils % 3.8 Basophils % 0.9 D-Dimer, Quantitative 2170.0 H* Sodium 137 Potassium 6.1 H Chloride 100 L Carbon Dioxide 25 Anion Gap 18.1 H BUN 37 H Creatinine 1.63 H BUN/Creatinine Ratio 22.7 H Random Glucose 101 Serum Osmolality 282.6 Calcium 9.9 Magnesium 1.7 L Total Bilirubin 0.7 AST 30 ALT 41 Alkaline Phosphatase 92 Creatine Kinase 31 L CK-MB (CK-2) 1.1 CK-MB (CK-2) % Not Reportable Troponin I < 0.02 B-Natriuretic Peptide 45.7 Serum Total Protein 8.0 Albumin 4.3 Globulin 3.7 H Albumin/Globulin Ratio 1.2 TSH 1.85 Rapid coronavirus test is negative. Chest x-ray shows no acute pathology. EKG shows normal sinus rhythm at 64 bpm. Normal axis. Borderline R wave progression. No ST segment or T wave changes indicative of acute ischemia. Normal QT interval. Departure - Departure Clinical Impression: Hypokalemia, Near syncope, D-dimer, elevated Acute renal failure Qualifiers: Acute renal failure type: unspecified Qualified Code(s): N17.9 - Acute kidney failure, unspecified Hypotension Qualifiers: Hypotension type: hypotension due to drug Qualified Code(s): I95.2 - Hypotension due to drugs Disposition: Admit Patient Departure Forms: ED Discharge - Pt. Copy, Patient Portal Self Enrollment Referrals: Kareem Pastrana MD [Primary Care Provider] - 1-2 Weeks Home Medications: Ambulatory Orders Pantoprazole Tablet [Protonix] 40 mg PO DAILY #10 tab 05/19/18 Acetaminophen [Tylenol] 500 mg PO BID 11/12/20 Aspirin [Aspirin Adult Low Strengt] 81 mg PO QPM 11/12/20 Cetirizine HCl [Cetirizine Hydrochloride] 10 mg PO QAM 11/12/20 Lisinopril 40 mg PO QAM 11/12/20 Metformin HCl [Metformin Hydrochloride] 1,000 mg PO BID 11/12/20 Simvastatin [Zocor] 80 mg PO QPM 11/12/20 Tamsulosin [Flomax] 0.4 mg PO QAM 11/12/20 Cyclobenzaprine HCl [Flexeril] 10 mg PO Q8H PRN #30 tab 11/22/20 HYDROcodone 5MG/APAP 325MG [Brookesmith 5/325] 1 ea PO Q4H PRN tab 11/22/20 Rivaroxaban [Xarelto] 15 mg PO DAILY #9 tablet 11/22/20 Decision To Admit - Decistion To Admit Decision to Admit Reason: Medical Nature Decision to Admit Date: 12/26/20 Decision to Admit Time: 14:45
[2020-12-26] MEDS ORDERED: MAGNESIUM SULFATE PREMIX 2GM 2 GM in PREMIX BAG 1 BAG IVPB ONE (16:18)
[2020-12-26] MEDS ORDERED: DEXTROSE 50% 25 GM/50 ML SYG IV PRN (16:27)
[2020-12-26] MEDS ORDERED: GLUCAGON INJ 1 MG VIAL SUBCU PRN (16:27)
[2020-12-26] MEDS ORDERED: SODIUM CHLORIDE 0.9% (FLUSH) 10 ML SYG IV PRN (16:28)
[2020-12-26] MEDS ORDERED: ONDANSETRON INJ 4 MG/2 ML VIAL IV PRN (16:28)
[2020-12-26] MEDS ORDERED: IV SET AND CAP CHANGE INJ INJ SCH (16:30)
[2020-12-26] MEDS ORDERED: ENOXAPARIN SODIUM 100 MG/ML SYG SUBCU SCH (17:00)
[2020-12-26] MEDS: INSULIN LISPRO 100 UNITS/ML PEN SUBCU SCH ×2 (17:39→20:42)
[2020-12-26] MEDS ORDERED: SIMVASTATIN 20 MG TAB PO SCH (18:00)
[2020-12-26] MEDS ORDERED: SIMVASTATIN 80 MG PO SCH (18:00)
[2020-12-26] MEDS ORDERED: ASPIRIN (ENTERIC COATED) 81 MG TAB PO SCH (18:00)
[2020-12-26] MEDS ORDERED: SODIUM CHLORIDE 0.9% (FLUSH) 10 ML SYG ONE (19:20)
[2020-12-26] MEDS ORDERED: metFORMIN HCL 500 MG TAB ONE (19:20)
[2020-12-26] MEDS: metFORMIN HCL 500 MG TAB PO SCH ×2 (20:34→20:41)
[2020-12-26] MEDS: SODIUM CHLORIDE 0.9% (FLUSH) 10 ML SYG IV SCH (20:41)
[2020-12-26] MEDS ORDERED: NON-FORMULARY MEDICATION 1 EA MIS (Metformin Hcl [Metformin Hydrochloride] 1,000 MG) PO SCH (21:00)
[2020-12-27] MEDS ORDERED: PANTOPRAZOLE SODIUM IV 40 MG VIAL ONE (03:32)
[2020-12-27] MEDS ORDERED: PANTOPRAZOLE SODIUM IV 40 MG VIAL IV SCH (06:30)
[2020-12-27] MEDS ORDERED: CETIRIZINE HCL 10 MG TAB PO ONE (07:17)
[2020-12-27] MEDS ORDERED: TAMSULOSIN 0.4 MG CAP ONE (07:17)
[2020-12-27] MEDS: INSULIN LISPRO 100 UNITS/ML PEN SUBCU SCH ×2 (07:21→11:47)
[2020-12-27] MEDS: metFORMIN HCL 500 MG TAB PO SCH (08:11)
[2020-12-27] MEDS: SODIUM CHLORIDE 0.9% (FLUSH) 10 ML SYG IV SCH (08:12)
[2020-12-27 09:00] VITALS: O2SAT 96
[2020-12-27] MEDS ORDERED: CETIRIZINE HCL 10 MG TAB PO SCH (09:00)
[2020-12-27] MEDS ORDERED: TAMSULOSIN 0.4 MG CAP PO SCH (09:00)
[2020-12-27] MEDS ORDERED: LISINOPRIL 10 MG TAB PO SCH ×2 (09:00)
[2020-12-27] MEDS ORDERED: NON-FORMULARY MEDICATION 1 EA MIS (Lisinopril [Lisinopril] 40 MG) PO SCH (09:00)
--- NOTE | 2020-12-27 10:03 | CT ---
EXAM DESCRIPTION: CTA Chest CLINICAL HISTORY: 75 years Male, elevated d-dimer;sob TECHNIQUE: Volumetric CT angiographic data acquisition of the thorax was obtained. Standard axial and CT angiographic MIP sagittal and coronal images are submitted. This exam was performed according to our departmental dose-optimization program, which includes automated exposure control, adjustment of the mA and/or kV according to patient size and/or use of iterative reconstruction technique. COMPARISON: May 19, 2018 FINDINGS: The thyroid gland is unremarkable. No axillary adenopathy. Atherosclerotic plaque in the aortic arch. Coronary artery calcifications. Trace pericardial fluid. No evidence of acute process in the visualized upper abdomen. Similar left renal cystic lesions. No mediastinal adenopathy. No definite central or segmental pulmonary embolus. Evaluation limited by respiratory motion and contrast bolus timing. No pneumothorax. No pleural effusion. No focal consolidation. No suspicious pulmonary nodule. Bibasilar dependent volume loss. DISH. No acute or suspicious osseous abnormality. Scattered degenerative changes present. IMPRESSION: No evidence of acute process in the chest. No pulmonary embolus. Electronically signed by: Gordon Darby MD 12/27/2020 10:01 AM [facility]
[2020-12-27 10:07] VITALS: BP 138/76; TEMP 97.5
--- NOTE | 2020-12-28 08:23 | SSS ---
SUPERVISING PHYSICIAN: Jose Yo MD DATE OF ADMISSION: 12/26/20 DATE OF DISCHARGE: 12/27/20 DISCHARGE DIAGNOSIS: 1. Hypotension with dizziness and shortness of breath. 2. Acute renal failure due to dehydration. 3. 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 4. Diabetes mellitus, type 2. 5. Cerebrovascular accident. 6. Questionable early dementia. HISTORY OF PRESENT ILLNESS: This is a 75-year-old patient that was actually doing physical therapy for his left knee that was replaced at the end of October of last year. He was short of breath and somewhat dizzy during his therapy session. Therapist took his blood pressure and his systolic blood pressure was in the upper 80s and low 90s. He was visibly short of breath. They sent him to the Emergency Room. It is to be noted that he has had a 30- pound weight loss in the last few months that has been intended weight loss. His initial vital signs were: temperature 98.2, heart rate 64, blood pressure 93/57, respiratory rate 18, O2 saturation 98%. His labs were done and CBC was unremarkable. D-dimer was 2,170. His electrolytes were within normal limits with the exception of his magnesium was low at 1.6. BUN 32, creatinine 1.43. His admitting creatinine was 1.63. His baseline creatinine is about 1. They were unable to do a CTA due to his renal function. He received some fluids and was placed in observation in the hospital. HOSPITAL COURSE: The patient was placed in observation. Neuro checks were completed and he was gently rehydrated. His home medications were restarted with the exception of his lisinopril and it was decreased from 40 mg to 10 mg. He also was started on Lovenox at 1 mg/kg dosing due to concerns for pulmonary embolism. His neuro checks were unremarkable. He had no further incidences of shortness of breath. His vital signs did stabilize. Once his creatinine improved, CTA of the chest was completed. No pulmonary embolus found. At times, the patient has some difficulty recalling recent events and I am not sure if he has early dementia, but that may be something that needs to having testing done in the next few months. He will be discharged home today in stable condition with close followup with his primary care physician, Dr. Kareem Pastrana. PAST MEDICAL HISTORY: 1. Previous myocardial infarction at age 39 with stent placement. 2. Diabetes mellitus, type 2. 3. Previous cerebrovascular accidents. 4. Skin cancer with surgical removal. PAST SURGICAL HISTORY: 1. Left knee arthroscopy. 2. Left total knee arthroplasty about a month ago. 3. Coronary artery stent placement. 4. Skin cancer removals. OUTPATIENT MEDICATIONS: 1. Protonix. 2. Aspirin. 3. Tylenol. 4. Simvastatin. 5. Pantoprazole. 6. Metformin. 7. Lisinopril. 8. Cetirizine. 9. Flomax. ALLERGIES: NO KNOWN DRUG ALLERGIES. FAMILY HISTORY: Positive for myocardial infarction, diabetes. SOCIAL HISTORY: He lives in [place]. He is an [employer] . He is . He has a history of smoking, but he quit many years ago. He drinks alcohol on very rare occasion and there is no history of illicit drug use. REVIEW OF SYSTEMS: GENERAL: Positive for fatigue and intentional 30-pound weight loss. Negative for fever. HEENT: Negative for sinus symptoms, ear pain, vision changes or sore throat. RESPIRATORY: Positive for shortness of breath. Negative for wheezing, coughing. CARDIAC: Negative for chest pain, palpitations or tachycardia. GASTROINTESTINAL: Negative for nausea, vomiting, diarrhea, constipation. GENITOURINARY: Negative for hematuria, dysuria or polyuria. MUSCULOSKELETAL: As per history of present illness. SKIN: Negative for lesions or rashes. NEUROLOGIC: Positive for weakness and dizziness. Negative for headache or seizures. PHYSICAL EXAMINATION: VITAL SIGNS: Temperature 97.5, heart rate 74, blood pressure 138/76, respiratory rate 16, O2 saturation 96% on room air. GENERAL: This is a 75-year-old male patient who is sitting up on the side of his bed eating. He is in no acute distress. HEENT: Normocephalic, atraumatic. Pupils are equal and reactive. Oropharynx is clear. NECK: Supple. RESPIRATORY: Essentially clear to auscultation bilaterally. CARDIOVASCULAR: Regular rate and rhythm. GASTROINTESTINAL: Abdomen is soft, nondistended, nontender. Bowel sounds are positive. EXTREMITIES: No cyanosis, clubbing or edema. NEUROLOGIC: Awake, alert and oriented times three. SKIN: [place], warm and dry. LABORATORY: Followup labs showed CBC unremarkable. Electrolytes within normal limits. Creatinine is now 1.06. Hemoglobin A1c 6.1. Liver enzymes within normal limits. Triglycerides 140, LDL 38.2, HDL 22. MICROBIOLOGY: Influenza A and B by PCR are both negative. COVID swab was negative. RADIOLOGY: Chest/thorax CTA shows no evidence of acute process of the chest. No pulmonary embolus. ECHOCARDIOGRAM: 1) Normal global wall motion with mild left ventricular hypertrophy. 2) Grade 1 diastolic dysfunction consistent with impaired relaxation and normal filling pressures. 3) Mild pulmonic valve regurgitation. DISCHARGE PLAN: The patient will be discharged home in stable condition. He is to resume his previous diet and increase his activity as tolerated, but is to take extra concerns if he becomes dizzy. He is to go to physical therapy tomorrow as previously ordered. He has a followup with his primary care physician, Dr. Kareem Pastrana, on 12/31/20 at 9:30 AM. His home medications are to be resumed except he is to discontinue his lisinopril 40 mg and continue it at 10 mg daily. I have also started him on Xarelto 15 mg. I sent him home on samples for [address] Pastrana can decide if he wants him to continue on an anticoagulant. He is to return to the hospital or followup with Dr. Pastrana for any problems. DISCHARGE MEDICATIONS: 1. Pantoprazole. 2. Flomax. 3. Simvastatin. 4. Metformin. 5. Lisinopril 10 mg daily. 6. Cetirizine. 7. Aspirin. 8. Acetaminophen. 9. Cyclobenzaprine. 10. Hydrocodone (from his knee surgery). 11. Xarelto. #[id number] [facility]
== END 2020-12-27 13:24 | disposition home or self-care (01) ==
LOC: ER 11:41 → MS 15:37
PROVIDERS: ADMIT Nurse Practitioner Acute Care; ATTEND Nurse Practitioner Acute Care
DX: I95.2 Hypotension due to drugs (principal); T46.4X5A Adverse effect of angiotensin-converting-enzyme inhibitors, initial encounter; R42 Dizziness and giddiness; R06.02 Shortness of breath; N17.9 Acute kidney failure, unspecified; E86.0 Dehydration; E11.9 Type 2 diabetes mellitus without complications; E83.42 Hypomagnesemia; E87.5 Hyperkalemia; I08.1 Rheumatic disorders of both mitral and tricuspid valves; I25.2 Old myocardial infarction; Z96.652 Presence of left artificial knee joint; Z20.822 Contact with and (suspected) exposure to COVID-19; Z79.01 Long term (current) use of anticoagulants; Z79.82 Long term (current) use of aspirin; Z79.84 Long term (current) use of oral hypoglycemic drugs; Z79.899 Other long term (current) drug therapy; Z86.73 Personal history of transient ischemic attack (TIA), and cerebral infarction without residual deficits; Z95.5 Presence of coronary angioplasty implant and graft; Z85.828 Personal history of other malignant neoplasm of skin; Z87.891 Personal history of nicotine dependence; Z82.49 Family history of ischemic heart disease and other diseases of the circulatory system; Z83.3 Family history of diabetes mellitus
CPT/HCPCS: 96365; 96375; 96372; J7030; A4216 ×2; J1650; J3475; 85379; 80048; 82553; 80053 ×2; 82948 ×4; 83036; 80061; 36415 ×3; 81001; 85025 ×2; 82550; 83735 ×3; 84443; 84484; 83880; 36416 ×4; 71045; 71275; 94762; 99285; 93306; 93005; G0378; 87502; 87635

== ENCOUNTER 2021-01-21 05:38 | Day surgery (SDC) | payer MEDICARE ==
[2021-01-21] MEDS ORDERED: PROPOFOL 200 MG/20 ML VIAL IV ONE (05:39)
[2021-01-21] MEDS ORDERED: LIDOCAINE 1% 10 ML VIAL INJ ONE (05:39)
[2021-01-21] MEDS ORDERED: fentaNYL CITRATE INJ 50 MCG/ML 2 ML AMP ONE (09:03)
[2021-01-21] MEDS ORDERED: HYDROcodone 5MG/APAP 325MG 1 EA TAB ONE (09:39)
[2021-01-21] MEDS ORDERED: HYDROcodone 5MG/APAP 325MG 1 EA TAB PO ONE (09:42)
[2021-01-21 12:04] VITALS: BP 147/77; TEMP 98.6; O2SAT 97
--- NOTE | 2021-01-21 13:00 | RAD ---
EXAM DESCRIPTION: Fluoroscopy Up to 1Hr CLINICAL HISTORY: 76 years Male, FERMIN LEFT KNEE COMPARISON: None. IMPRESSION: Operative changes of total left knee arthroplasty. Please see procedure report for full details. Fluoroscopy time: 9 seconds Fluoroscopic images: 1 Total DAP: mGy-m2 Electronically signed by: Galen Valdez MD 01/21/2021 12:58 PM [facility]
--- NOTE | 2021-01-24 08:51 | OP ---
DATE OF PROCEDURE: 01/21/21 PREOPERATIVE DIAGNOSIS: 1. Arthrofibrosis. POSTOPERATIVE DIAGNOSIS: 1. Arthrofibrosis. PROCEDURE: 1. Closed manipulation under anesthesia. SURGEON: Calvin Morillo MD. SOLUTION SALES SENIOR EXECUTIVE: Ozzie Smith CST, SA-C. ANESTHESIA: Conscious sedation. COMPLICATIONS: None. FINDINGS: Preoperative range of motion with flexion to about 90 degrees today. Postoperative range of motion to approximally 115 degrees. INDICATION: Mr. Palacio has a history of total knee replacement which went well except he admittedly was not doing his physical therapy. After discussing with him the importance of doing physical therapy, we talked about the potential for closed manipulation. After discussing the risks, benefits and alternatives to that, he gave informed consent for that. PROCEDURE: The patient was brought to the Operating Room and placed in supine position. Conscious sedation was administered and the knee was hyperflexed. Following hyperflexion of the knee, a fluoroscopic image was taken to ensure no acute complication occurred. The patient was then awoken from anesthesia and taken to Recovery. POSTOPERATIVE PLAN: The patient has been instructed to attend physical therapy immediately so that we can get him moving and maintain his range of motion without recurrence. #[id number] [facility]
== END 2021-01-21 10:30 | disposition home or self-care (01) ==
LOC: AMB 05:38
PROVIDERS: ATTEND Orthopaedic Surgery
DX: M24.662 Ankylosis, left knee (principal); I10 Essential (primary) hypertension; E11.9 Type 2 diabetes mellitus without complications; Z96.652 Presence of left artificial knee joint; Z79.82 Long term (current) use of aspirin; Z79.84 Long term (current) use of oral hypoglycemic drugs; Z79.899 Other long term (current) drug therapy
CPT/HCPCS: 01380; 27570; 36416; 76000; 82948; J3010; J3490